=== PATIENT | female | born 1990 | race Caucasian/White ===

== ENCOUNTER → 2018-10-31 17:46 | Outpatient (CLI) | payer OTHER, SELFPAY ==
[2018-11-03 12:06] LABS: HPV Reflexed? NOT INDICATED
== END ==
PROVIDERS: Visit Provider Obstetrics & Gynecology
DX: Z12.4 Encounter for screening for malignant neoplasm of cervix (principal)
CPT/HCPCS: 87624; 88175; G0145

== ENCOUNTER → 2023-12-05 | Outpatient (CLI) | payer SELFPAY ==
--- NOTE | 2023-12-05 12:41 | RAD_ITS ---
INDICATION: ASTHMA EXAMINATION/TECHNIQUE: X-RAY - XR Chest 2 Views COMPARISON: No relevant prior comparison study available FINDINGS: LINES/DEVICES: None. LUNGS: No consolidation, edema or effusion. No pneumothorax. MEDIASTINUM AND CARDIOVASCULAR STRUCTURES: Cardiac silhouette not enlarged. Central airways and mediastinal contour are unremarkable. BONES AND SOFT TISSUES: Unremarkable. RAD/Chest PA and Lateral IMPRESSION: No radiographic evidence of acute cardiopulmonary disease. Electronically Signed: Sheldon Thomas MD at 13:46 EDT ,
--- NOTE | 2023-12-05 12:41 | RAD_ITS ---
INDICATION: CHRONIC SINUSITIS EXAMINATION/TECHNIQUE: X-RAY - XR Sinuses Paranasal Min 3 Views COMPARISON: No relevant prior comparison study available FINDINGS: There is no significant mucosal thickening. There are no air-fluid levels. The regional bones are grossly intact. Mild prominence of the posterior nasopharynx possibly due to rotation. RAD/Sinuses min 3 Views IMPRESSION: No evidence of sinus disease on this examination. Electronically Signed: Sheldon Thomas MD at 13:27 EDT ,
== END | disposition home or self-care (01) ==
PROVIDERS: PCP Family Medicine; Referring Provider Family Medicine; Visit Provider Family Medicine
DX: J32.9 Chronic sinusitis, unspecified (principal); J45.909 Unspecified asthma, uncomplicated
CPT/HCPCS: 70220; 71046